=== PATIENT | female | born 2005 | race Caucasian/White ===

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

== ENCOUNTER 2024-09-06 14:02 | Emergency (ER) | payer OTHER ==
[~2024-09-06] VITALS: Ht 172.7 cm; Wt 73.1 kg
[2024-09-06 14:24] VITALS: TEMP 97.3
[2024-09-06 15:01] LABS: Basophils # (auto) 0 10 ^3/uL (0-0.2); Basophils % (auto) 0.2 % (0.0-2.0); Eosinophils # (auto) 0.1 10 ^3/uL (0-0.8); Hematocrit 44.9 % (36.0-46.0); Hemoglobin 15.2 g/dL (12.2-16.2); Lymphocytes % (auto) 9.4 % (10.0-50.0); Mean Corpuscular Hgb Conc. 33.8 g/dL (32.0-36.0); Mean Corpuscular Volume 85.6 fL (80.0-100.0); Monocytes # (auto) 0.4 10 ^3/uL (0-1.3); Monocytes % (auto) 3.2 % (0.0-12.0); Neutrophils # (auto) 9.6 10 ^3/uL (1.6-8.6); Neutrophils % (auto) 86.2 % (37.0-80.0); Platelet Count (auto) 251 10^3/uL (140-450); Red Blood Cells 5.24 10^6/uL (4.0-5.20); Red Cell Distribution Width 13.3 % (11.8-14.3); White Blood Cell 11.1 10^3/uL (4.4-10.8)
[2024-09-06 15:16] LABS: Alanine Aminotransferase 21 U/L (7-40); Alkaline Phosphatase 57 U/L (46-116); Anion Gap 13 (5-15); Aspartate Aminotransferase 19 U/L (13-40); BUN/Creatinine Ratio 16.7 (10.0-20.0); Blood Urea Nitrogen 16 mg/dL (9-23); Carbon Dioxide 23 mmol/L (20-31); Chloride 100 mmol/L (98-107); Potassium 4.6 mmol/L (3.5-5.1); Total Protein 7.4 g/dL (5.7-8.2)
--- NOTE | 2024-09-06 15:16 | ED.PDOC ---
History of present illness HPI Comments 18 y.o female with PMHx of DM 1, presents to the ED for an evaluation of hyperglycemia. Patient reports she woke up today and her insulin pump was off, states she turned it on and noticed glucose levels were elevated. Patient then gave herself additional insulin but glucose kept increasing accompanied with sha rp chest discomfort, nausea, vomiting and epigastric pain, onset around 11am. Patient states the chest pain is causing difficulty taking deep breaths and notes pain is intermittent with no alleviating factors. Upon ED arrival, patient's BG read 455. Pt denies history of DKA. Patient denies any diarrhea, fever, chills, sweats, urine frequency or dysuria. Chief Complaint: Hyperglycemia Time Seen by MD: 14:55 Primary Care Provider: BRITTANI History of present illness: Nurses Notes, Medications, Allergies Allergies: Coded Allergies: NO KNOWN ALLERGIES (Unverified , 06/17/22) Information Source: Patient Mode of Arrival: Ambulatory Timing: Hours Duration: Since onset [place]: Other History of: Diabetes, Insulin use Modifying factors: Nothing Associated signs and symptoms: Chest Pain, Abdominal Pain, Nausea, Vomiting Past Medical History PAST MEDICAL HISTORY: DM Surgical History: Appendectomy [employer]PERVISOR INCISING History: No Pertinent SUPERVISOR INCISING History Family History Family History: Reviewed,noncontributory to illness Social History Smoker: Non-Smoker Alcohol: Denies ETOH Use Drugs: Denies Drug Use Lives In: Home Constitutional: denies: chills, diaphoresis, fatigue, fever, malaise, sweats, weakness, others EENTM: denies: blurred vision, double vision, ear bleeding, ear discharge, ear drainage, ear pain, ear ringing, eye pain, eye redness, hearing loss, mouth pain, mouth swelling, nasal discharge, nose bleeding, nose congestion, nose pain, photophobia, tearing, throat pain, throat swelling, voice changes, others Respiratory: reports: shortness of breath; denies: cough, hemoptysis, orthopnea, SOB at rest, SOB with excertion, stridor, wheezing, others Cardiovascular: reports: chest pain; denies: dizzy spells, diaphoresis, Dyspnea on exertion, edema, irregular heart beat, left arm pain, lightheadedness, palpitations, PND, syncope, others Gastrointestinal: reports: abdominal pain, nausea, vomiting; denies: abdomen distended, blood streaked bowels, constipated, diarrhea, dysphagia, difficulty swallowing, hematemesis, melena, poor appetite, poor fluid intake, rectal bleeding, rectal pain, others Genitourinary: denies: abnormal vagina bleeding, burning, dyspareunia, dysuria, flank pain, frequency, hematuria, incontinence, pain, , vagina discharge, urgency, others Neurological: denies: dizziness, fainting, headache, left sided numbness, left sided weakness, numbness, paresthesia, pre-existing deficit, right sided numbness, right sided weakness, seizure, speech problems, tingling, tremors, weakness, others Musculoskeletal: denies: back pain, gout, joint pain, joint swelling, muscle pain, muscle stiffness, neck pain, others Integumetry: denies: bruises, change in color, change in hair/nails, dryness, laceration, lesions, lumps, rash, wounds, others Allergic/Immunocompromised: denies: Difficulty Healing, Frequent Infections, Hives, Itching, others Hematologic/Lymphatic: denies: anemia, blood clots, easy bleeding, easy bruising, swollen glands, others Endocrine: denies: excessive hunger, excessive sweating, excessive thirst, excessive urination, flushing, intolerance to cold, intolerance to heat, unexplained weight gain, unexplained weight loss, others Psychiatric: denies: anxiety, bipolar disorder, depression, hopeless, panic disorder, schizophrenia, sleepless, suicidal, others All Other Systems: Reviewed and Negative Physical Exam General Appearance: Mild Distress HEENT: Other (dry mucous membranes. pupils and face symmetric.) Neck: Full Range of Motion, Normal Inspection Respiratory: Lungs Clear, No Accessory Muscle Use, No Respiratory Distress, Normal Breath Sounds Cardiovascular: No Edema, No JVD, Regular Rate/Rhythm Breast Exam: Deferred Gastrointestinal: Epigastric, Tenderness Genitalia: Deferred Pelvic: Deferred Rectal: Deferred Extremities: Normal inspection, Normal range of motion, Non-tender, No pedal edema Neurologic: Alert (oriented x 4), Normal Affect, Normal Mood, Other (ambula tory) Cerebellar Function: NOT DONE Reflexes: NOT DONE Skin: Dry, Normal Color, Warm Lymphatic: NOT DONE Was a procedure done? Was a procedure done?: No Differential Diagnosis (DM) Differential Diagnosis: Dehydration, DKA, Electrolyte Abnormality, Gastritis, Gastroenteritis, Hyperglycemia, Hyperosmolar State, Pancreatitis, UTI X-Ray, Labs, Meds, VS Vital Signs Date Time Temp Pulse Resp B/P (MAP) Pulse Ox O2 Delivery O2 Flow Rate FiO2 09/06/24 18:18 66 16 98/60 (73) 98 09/06/24 18:18 66 16 98 Room Air* 0 21 09/06/24 14:24 97.3 91 16 101/71 (81) 95 97.3 Lab Test 09/06/24 18:14 09/06/24 16:18 09/06/24 15:45 09/06/24 14:45 Range/Units POC Glucose 156 H 301 H 70-106 mg/dl Troponin I High Sensitivity < 3 L < 3 L </=34 ng/L White Blood Count 11.1 H 4.4-10.8 10^3/uL Red Blood Count 5.24 H 4.0-5.20 10^6/uL Hemoglobin 15.2 12.2-16.2 g/dL Hematocrit 44.9 36.0-46.0 % Mean Corpuscular Volume 85.6 80.0-100.0 fL Mean Corpuscular Hemoglobin 29.0 28.0-32.0 pg Mean Corpuscular Hemoglobin Concent 33.8 32.0-36.0 g/dL Red Cell Distribution Width 13.3 11.8-14.3 % Platelet Count 251 140-450 10^3/uL Mean Platelet Volume 9.9 6.9-10.8 fL Neutrophils (%) (Auto) 86.2 H 37.0-80.0 % Lymphocytes (%) (Auto) 9.4 L 10.0-50.0 % Monocytes (%) (Auto) 3.2 0.0-12.0 % Eosinophils (%) (Auto) 1.0 0.0-7.0 % Basophils (%) (Auto) 0.2 0.0-2.0 % Neutrophils # (Auto) 9.6 H 1.6-8.6 10 ^3/uL Lymphocytes # (Auto) 1.0 0.4-5.4 10 ^3/uL Monocytes # (Auto) 0.4 0-1.3 10 ^3/uL Eosinophils # (Auto) 0.1 0-0.8 10 ^3/uL Basophils # (Auto) 0 0-0.2 10 ^3/uL Nucleated Red Blood Cells 0.0 % Sodium Level 136 136-145 mmol/L Potassium Level 4.6 3.5-5.1 mmol/L Chloride Level 100 98-107 mmol/L Carbon Dioxide Level 23 20-31 mmol/L Anion Gap 13 5-15 Blood Urea Nitrogen 16 9-23 mg/dL Creatinine 0.96 0.550-1.02 mg/dL Glomerular Filtration Rate Calc 87 >90 mL/min BUN/Creatinine Ratio 16.7 10.0-20.0 Serum Glucose 439 *H 74-106 mg/dL Calcium Level 10.5 H 8.7-10.4 mg/dL Total Bilirubin 1.4 H 0.2-1.0 mg/dL Aspartate Amino Transferase (AST) 19 13-40 U/L Alanine Aminotransferase (ALT) 21 7-40 U/L Alkaline Phosphatase 57 46-116 U/L B-Type Natriuretic Peptide 20.54 0-100 pg/mL Total Protein 7.4 5.7-8.2 g/dL Albumin 4.9 H 3.2-4.8 g/dL Lipase 29 12-53 U/L Beta-Hydroxybutyric Acid 1.950 H < 0.4 mmol/L Beta HCG, Quantitative 0.3 L 1.5-4.2 mIU/mL Test 09/06/24 14:20 09/06/24 14:14 09/06/24 14:09 Range/Units Urine Color Light-yellow Yellow Urine Clarity Clear Clear Urine pH 5.5 5.0-9.0 Urine Specific [place] 1.032 1.001-1.035 Urine Protein Negative Negative Urine Ketones 3+ H Negative Urine Blood Negative Negative /uL Urine Nitrite Negative Negative Urine Bilirubin Negative Negative Urine Urobilinogen Normal Negative mg/dL Urine Leukocyte Esterase Negative Negative /uL Urine RBC 1 0 - 4 /hpf Urine Microscopic WBC < 1 0-5 /HPF Urine Squamous Epithelial Cells Few <5 /hpf Urine Bacteria Few H None Seen /hpf Urine Glucose 4+ H Normal mg/dL POC Glucose 459 *H 455 *H 70-106 mg/dl Current Medications Medications (Trade) Dose Ordered Sig/Jean Route Start Time Stop Time Status Last Admin Sodium Chloride 2,000 ml @ 1,000 mls/hr Q2H ONCE IV 09/06/24 15:15 09/06/24 17:14 DC 09/06/24 16:17 Insulin Human Regular (InsuLIN R) 10 units ONCE ONCE IV 09/06/24 15:15 09/06/24 15:16 DC 09/06/24 16:33 Ondansetron HCl (Zofran) 4 mg ONCE ONCE IV 09/06/24 15:15 09/06/24 15:16 DC 09/06/24 16:32 Pantoprazole Sodium (Protonix) 40 mg ONCE ONCE IV 09/06/24 15:15 09/06/24 15:16 DC 09/06/24 16:32 PROCEDURE(s): CXRP - CHEST PORTABLE REASON: cp sob ORDER NUMBER(s): [id number], ACCESSION NUMBER(s): [id number] CHEST RADIOGRAPH Indication: cp sob Technique: Single frontal view of the chest was obtained COMPARISON: None FINDINGS: Lines and Tubes: None Lungs: Clear Pleura: No effusion. No pneumothorax. Cardiomediastinal contours: Unremarkable Bones: Unremarkable IMPRESSION: 1. No acute disease. EDURE(s): ABPL - CT AB PEL WO CON-NO ORAL OR IV REASON: upper abd pain, n/v ORDER NUMBER(s): [id number], ACCESSION NUMBER(s): [id number] CT abdomen and pelvis without contrast INDICATION: upper abd pain, n/v TECHNIQUE: Serial axial images were performed through the abdomen and pelvis and then reformatted in the sagittal and coronal plane. All CT scans at this medical facility are performed using dose modulation techniques as appropriate to a performed exam including the following: Automated exposure control was utilized; adjustment of the MA and/or KvP according to patient size; and use of iterative reconstruction technique. FINDINGS: Liver and spleen are normal in size without focal mass. No renal masses, stones or hydronephrosis. No masses or enlargement of the adrenal glands or pancreas. No biliary dilatation. No gallstones. No distention of bowel loops to suggest mechanical obstruction of bowel. Appendix is surgically absent. No free fluid. Within the pelvis, bladder is smooth walled without stones. No abnormal masses or fluid collections. IMPRESSION: 1. No acute disease in the abdomen or pelvis Computed Tomographic Radiation Dosimetry Report: Total CTDI vol = 9.53mGy Total DLP = 534.05mGy-cm Low dose protocols were performed. X-Ray, Labs, Meds, VS Comment 18 y.o female with PMHx of DM 1, presents to the ED for an evaluation of hyperglycemia, n/v, epigastric pain and chest discomfort VS unremarkable exam remarkable for mild epigastric tenderness rhythm strip independently interpreted by me: sinus rhythm, rate 91, no ectopy chest xray and CT abdomen and pelvis unremarkable CBC remarkable for WBC 11.1, metabolic panel remarkable for glucose 439 with normal anion gap. lipase, troponin and BNP normal. beta hydroxybutyrate 1.95. HCG negative. Urine positive for ketones and glucose, otherwise unremarkable Patient treated with the following in the ED: 2 L 0.9 normal saline IV bolus, Zofran 4 mg IV, Protonix 40 mg IV, regular insulin 10 units IV. Patient was advised to restart her insulin pump when blood glucose was down to around 300. On re-evaluation at 7:00 p.m., the patient's blood sugar was 156, and she stated she was feeling better and would like to be discharged home. Patient was otherwise well-appearing and I am comfortable discharging her with close follow-up with her primary physician. Time of 1ST Reevaluation: 15:12 Reevaluation 1ST: Unchanged Time of 2ND Reevaluation: 19:00 Reevaluation 2ND: Improved Patient Education/Counseling: Diagnosis, Treatment, Prognosis Family Education/Counseling: Diagnosis, Treatment, Prognosis Departure 1 Departure Time of Disposition: 18:57 Impression: Primary Impression: Hyperglycemia Additional Impression: Nausea & vomiting Qualified Codes: R11.2 - Nausea with vomiting, unspecified Disposition: 01 HOME / SELF CARE / HOMELESS Condition: Stable Additional Instructions: Follow-up with your primary doctor in 1-2 days. Discharged With: Self, Relative (Mother) Critical Care Note Critical Care Time?: No Stability Stability form required: No I personally scribed for RODRIGO CRAIG MD ([facility]) on 09/06/24 at 15:16. Electronically submitted by Gretchen Pina ([facility]). RODRIGO CRAIG MD September 06, 2024 15:16
[2024-09-06 15:17] LABS: Albumin 4.9 g/dL (3.2-4.8); Bilirubin, Total 1.4 mg/dL (0.2-1.0); Calcium 10.5 mg/dL (8.7-10.4); Sodium 136 mmol/L (136-145)
[2024-09-06 15:18] LABS: Glucose 439 mg/dL (74-106)
[2024-09-06 15:31] LABS: Urine Bacteria FEW /hpf (None Seen); Urine Blood Negative /uL (Negative); Urine Clarity Clear (Clear); Urine Color Light-Yellow (Yellow); Urine Protein, UAD Negative (Negative); Urine Specific Gravity 1.032 (1.001-1.035); Urine Squamous Epithelial Cell FEW /hpf (<5); Urine Urobilinogen Normal (Negative); Urine WBC < 1 /HPF (0-5); Urine pH 5.5 (5.0-9.0)
--- NOTE | 2024-09-06 16:16 | DVH ---
CHEST RADIOGRAPH Indication: cp sob Technique: Single frontal view of the chest was obtained COMPARISON: None FINDINGS: Lines and Tubes: None Lungs: Clear Pleura: No effusion. No pneumothorax. Cardiomediastinal contours: Unremarkable Bones: Unremarkable IMPRESSION: 1. No acute disease.
[2024-09-06] MEDS: SODIUM CHLORIDE 0.9% 2,000 ML IV ONE (16:17)
[2024-09-06] MEDS: ONDANSETRON HCL 4 MG/2 ML VIAL IV ONE (16:32)
[2024-09-06] MEDS: PANTOPRAZOLE 40 MG/10 ML VIAL INJ IV ONE (16:32)
[2024-09-06] MEDS: InsuLIN REG 1unit/0.01ml Soln (100units/ml) IV ONE (16:33)
--- NOTE | 2024-09-06 16:41 | DVH ---
CT abdomen and pelvis without contrast INDICATION: upper abd pain, n/v TECHNIQUE: Serial axial images were performed through the abdomen and pelvis and then reformatted in the sagittal and coronal plane. All CT scans at this medical facility are performed using dose modula tion techniques as appropriate to a performed exam including the following: Automated exposure contro l was utilized; adjustment of the MA and/or KvP according to patient size; and use of iterative recon struction technique. FINDINGS: Liver and spleen are normal in size without focal mass. No renal masses, stones or hydronep hrosis. No masses or enlargement of the adrenal glands or pancreas. No biliary dilatation. No gallsto fito. No distention of bowel loops to suggest mechanical obstruction of bowel. Appendix is surgically absent. No free fluid. Within the pelvis, bladder is smooth walled without stones. No abnormal masses or fluid collections. IMPRESSION: 1. No acute disease in the abdomen or pelvis Computed Tomographic Radiation Dosimetry Report: Total CTDI vol = 9.53mGy Total DLP = 534.05mGy-cm Lo w dose protocols were performed.
[2024-09-06 18:18] VITALS: BP 98/60; PULSE 66; RESP 16; O2SAT 98
== END 2024-09-06 19:14 | disposition home or self-care (01) ==
LOC: ER 14:02
DX: E10.65 Type 1 diabetes mellitus with hyperglycemia (principal); R11.2 Nausea with vomiting, unspecified; R06.02 Shortness of breath; Z90.49 Acquired absence of other specified parts of digestive tract; Z79.899 Other long term (current) drug therapy
CPT/HCPCS: 36415; 71045; 74176; 80053; 81001; 82010; 82947; 83690; 83880; 84484; 84702; 85025; 96361; 96374; 96375; 99285; J1815; J2405; J2470; J7030; 82962